=== PATIENT | male | born 1965 | race American Indian/Alaskan Native ===

== ENCOUNTER 2021-12-19 07:48 | Day surgery (SDC) | payer MEDICARE ==
[2021-12-19] MEDS: SODIUM CHLORIDE 0.9% 500 ML 500 ML IV SCH ×2 (09:11→12:40)
[2021-12-19 09:16] LABS: Basophils % (Auto) 0.9 % (0.0-1.8); Eosinophils # (Auto) 0.1 K/mm3 (0.0-0.4); Hematocrit 30.2 % (35.5-45.6); Hemoglobin 9.9 gm/dl (11.8-15.2); Lymphocytes # (Auto) 1.4 K/mm3 (1.2-5.4); Lymphocytes % (Auto) 29.4 % (13.4-35.0); Mean Corpuscular HGB Conc 33 % (32-34); Mean Corpuscular Volume 90 fl (84-94); Monocytes # (Auto) 0.5 K/mm3 (0.0-0.8); Monocytes % (Auto) 10.5 % (0.0-7.3); Platelet Count 241 K/mm3 (140-440); Red Blood Count 3.35 M/mm3 (3.65-5.03); Red Cell Distribution Width 15.2 % (13.2-15.2)
[2021-12-19 09:25] LABS: INR 0.94 (0.87-1.13)
[2021-12-19 09:29] LABS: BUN/Creatinine Ratio 16; Blood Urea Nitrogen 16 mg/dL (9-20); Hemolysis Index 7
[2021-12-19] MEDS ORDERED: MIDAZOLAM 2 MG/2 ML INJ ONE (12:10)
[2021-12-19] MEDS ORDERED: NITROGLYCERIN SYRINGE 3 ML ONE (12:13)
[2021-12-19] MEDS ORDERED: HEPARIN 10,000 UNITS/10 ML VIAL ONE (12:13)
[2021-12-19] MEDS ORDERED: VERAPAMIL 5 MG/2 ML INJ ONE (12:13)
[2021-12-19] MEDS ORDERED: HEPARIN/NS 5000 UNIT/500ML 1,000 ML IR ONE (12:13)
[2021-12-19] MEDS: fentaNYL 100 MCG/2 ML INJ ONE ×2 (12:40→12:46)
[2021-12-19] MEDS: LIDOCAINE (1%) 10 MG/1 ML VIAL 20 ML MDV ONE ×2 (12:43→12:46)
[2021-12-19] MEDS ORDERED: LIDOCAINE (1%) 10 MG/1 ML VIAL 20 ML MDV ONE (12:56)
[2021-12-19] MEDS ORDERED: HEPARIN/NS 5000 UNIT/500ML 500 ML IR ONE (12:57)
[2021-12-19] MEDS ORDERED: traMADol 50 MG TAB PO PRN (13:27)
[2021-12-19] MEDS ORDERED: SODIUM CHLORIDE 0.9% 1000 ML 1,000 ML IV SCH (13:30)
--- NOTE | 2021-12-19 13:32 | Discharge Summary ---
Short Stay Discharge Plan Activity: advance as tolerated Weight Bearing Status: Partial Weight Bearing Diet: low fat, low cholesterol, low salt Wound: keep clean and dry Special Instructions: smoking cessation, no heavy lifting (3 days) Follow up with: MANDI MAYERS MD [Primary Care Provider] - 7 Days ENEDELIA CHRIS MD [Staff Physician] - 7 Days
--- NOTE | 2021-12-19 13:52 | Electrocardiograph Report ---
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
--- NOTE | 2021-12-19 14:23 | Cardiac Catherization Report ---
DATE OF SERVICE: 12/19/2021 REASON FOR PROCEDURE: Cardiomyopathy, abnormal thallium stress test. PROCEDURES: 1. Left heart catheterization. 2. Selective left and right coronary angiography. 3. Left ventricular angiography. 4. Sedation time start 12:41, end 13:13. DESCRIPTION OF PROCEDURE: The patient was prepped and draped in a sterile fashion after informed consent. Several attempts were made to cannulate the right radial artery, all unsuccessful. We turned our attention to the left femoral artery. It was noted that due to an old injury, there was extensive scarring over the right groin area, so this was avoided in preference to the left femoral. The left femoral artery was entered using Seldinger technique followed by placement of a 6-Indonesian sheath. A 5-Ind[place]ian sheath was also similarly placed in the left femoral vein. Selective left and right coronary angiography was performed using a #4 left Britany and #4 right Britany. A pigtail catheter was used for left ventricular angiography. The catheters were then removed, sheath removed. Hemostasis over the arteriotomy was done using an Angio-Seal device and over the venous site using manual compression. The patient was returned to the postprocedure unit in stable condition. There were no complications. FINDINGS: HEMODYNAMICS: Left ventricular end-diastolic pressure was 16. Ascending aortic pressure 140/87. There was no significant pressure gradient on pullback across the aortic valve. CORONARY ANGIOGRAPHY: The left main coronary artery was angiographically normal. The left anterior descending artery and its diagonal branches were angiographically normal. The circumflex artery and its obtuse marginal branches were angiographically normal. The right coronary artery was a small caliber vessel, but dominant and similarly angiographically normal. There was mild left ventricular systolic dysfunction with mild diffuse hypokinesis, left ventricular ejection fraction 40-45%. CONCLUSION: 1. Essentially angiographically normal coronary arteries. 2. Very mild nonischemic cardiomyopathy, left ventricular systolic ejection fraction 40-45%. RECOMMENDATIONS: Medical therapy and risk factor modification. TID: [id number] RECEIPT: [id number] BLADE
[2021-12-19 16:03] VITALS: BP 114/69
== END 2021-12-19 16:52 | disposition home or self-care (01) ==
LOC: CATHLABREC 07:48
PROVIDERS: ATTEND Internal Medicine Cardiovascular Disease
DX: I42.8 Other cardiomyopathies (principal); R94.39 Abnormal result of other cardiovascular function study; E78.00 Pure hypercholesterolemia, unspecified; I10 Essential (primary) hypertension; K21.9 Gastro-esophageal reflux disease without esophagitis; D64.9 Anemia, unspecified; Z80.3 Family history of malignant neoplasm of breast; Z79.899 Other long term (current) drug therapy; Z79.82 Long term (current) use of aspirin; Z98.890 Other specified postprocedural states; Z80.1 Family history of malignant neoplasm of trachea, bronchus and lung
CPT/HCPCS: 36415; 80048; 85025; 85610; 93005; 93458; 99156; 99157; C1760; C1894; J1644; J1815; J2250; J3010; J7040; Q9967